=== PATIENT | male | born 1965 | race Caucasian/White ===

== ENCOUNTER → 2021-03-06 | Outpatient (CLI) | payer BC ==
[~2021-03-06] MED LIST: BACTRIM DS TAB1 EACH PO; DULERA 200 MCG8.8 GM INH; IPRAT-ALBUT 0.5-3 ML INH; KLOR-CON M2020 MEQ PO; LASIX40 MG PO; MEDROL4 MG PO; PAROXETINE HCL10 MG PO; ZYVOX600 MG PO
[2021-03-06 13:54] LABS: BUN/CREATININE RATIO 18 (0-10)
== END ==
LOC: LAB 12:33
PROVIDERS: Emergency Medicine
DX: J43.8 Other emphysema (principal); R60.0 Localized edema; R53.83 Other fatigue; E78.2 Mixed hyperlipidemia; R09.02 Hypoxemia
CPT/HCPCS: 36415; 80053